=== PATIENT | male | born 1990 | race Caucasian/White ===

== ENCOUNTER 2018-11-01 01:26 | Emergency (ER) | payer BC, MEDICAID ==
[~2018-11-01] VITALS: Ht 180.3 cm; Wt 128.0 kg
[~2018-11-01 01:26] MED LIST: ABX; BEN25 PO; CEPH-443 PO; HYDR50TA15 PO; IBUP800T48 PO
[2018-11-01 01:33] VITALS: BP 144/92; PULSE 72; RESP 18; Ht 180.3 cm; Wt 128.0 kg
--- NOTE | 2018-11-01 01:59 | ERD ---
ER Documentation Chief Complaint Chief Complaint states insect bite left buttock yesterday, now c/o numbness left leg/arms HPI This is a 27-year-old male who presents here emergency department with complaints of insect bite to left buttock. Stated that he was [place] out in the park last Thursday when he felt that an insect bit his left buttock. Stated that he felt nervous about this. Complains of numbness and tingling sensation and palpitations today and this is the reason why he came here to the emergency department. Stated that he feels anxious about this. Denies headache, head injury, loss of consciousness, dizziness, neck pain, neck stiffness, throat pain, difficulty swallowing, difficulty breathing lying flat, shoulder pain, chest pain, back pain, abdominal pain, nausea, vomiting, constipation, diarrhea, urinary symptoms, loss of bowel and bladder control, trauma, injury, falls, difficulty walking due to pain, numbness or tingling s ensation, calf pain, recent travel, recent major surgery in the last 3 weeks, calf pain, recent long travel, recent exposure to any illness, recent antibiotic use in the last 3 months, fever, chills, seizures. Past medical history: Denies. Surgical history: Denies. Social: Denies smoking, use of alcoholic beverages, use of illegal drugs. ROS All systems reviewed and are negative except as per history of present illness. Medications Home Meds Active Scripts Hydroxyzine Hcl* (Hydroxyzine Hcl*) 50 Mg Tablet, 50 MG PO Q6H PRN for ANXIETY, #30 TAB Prov:PASILABANTHEODOREAR F 11/01/18 Diphenhydramine Hcl* (Benadryl*) 25 Mg Cap, 25 MG PO Q6 PRN for ITCHING/RASH, #30 TAB Prov:PASILABANSADAF F 11/01/18 Ibuprofen* (Motrin*) 800 Mg Tab, 800 MG PO Q6H PRN for PAIN AND OR ELEVATED TEMP, #30 TAB Prov:PASILABANSADAF F 11/01/18 Cephalexin* (Keflex*) 500 Mg Capsule, 500 MG PO TID for 7 Days, CAP Prov:PASILABAN,THEODOREAR F 11/01/18 Reported Medications [Abx Ointment] No Conflict Check 03/08/10 Allergies Allergies: Coded Allergies: No Known Allergies (Verified Allergy, Mild, 03/08/10) PMhx/Soc History of Surgery: No Anesthesia Reaction: No Hx Neurological Disorder: No Hx Respiratory Disorders: No Hx Cardiac Disorders: No Hx Psychiatric Problems: No Hx Miscellaneous Medical Probl: No Hx Alcohol Use: No Hx Substance Use: No Hx Tobacco Use: No Physical Exam Vitals Physical Exam Const: No acute distress Head: Atraumatic Eyes: Normal Conjunctiva ENT: Normal External Ears, Nose and Mouth. Neck: Full range of motion. No meningismus. Resp: Clear to auscultation bilaterally Cardio: Regular rate and rhythm, no murmurs Abd: Soft, non tender, non distended. Normal bowel sounds Skin: No petechiae or rashes Back: No midline or flank tenderness Ext: No cyanosis, or edema. Left upper thigh: Has a circular redness that is approximately 3 cm in diameter and is warm to touch. Left calf is no tenderness. Right calf is no tenderness. No neurovascular deficit. Ambulatory with steady gait. Neur: Awake and alert. No neurological deficits. Psych: Normal Mood and Affect Results 24 hrs Current Medications Medications Dose Sig/Mera Start Time Status Last (Trade) Ordered Route PRN Stop Time Admin Dose Reason Admin Lorazepam 1 mg ONCE ONCE 11/01/18 DC 11/01/18 (Ativan) PO 02:00 02:15 11/01/18 02:01 Procedures/MDM Diagnostic tests: Clinical exam. Treatment: Ativan. Re-evaluation: Denies pain. Denies auditory/visual hallucinations/delusions. Not suicidal. Not homicidal. Has the capacity to decide for himself. Has good support system at home. Differential diagnosis I have low suspicion for sepsis, DVT, deep space infection, suicidal ideation, 5150. Final diagnosis: Anxiety. Infected insect bite. Prescription: Motrin. Benadryl. Keflex. Hydroxyzine. Follow-up with PCP in the next 24-48 hours. Come back here in the emergency department for any new symptoms or any worsening symptoms. All questions and concerns were answered. Patient and family members verbalized understanding and agreed with plan of care. Hemodynamically stable on discharge. Departure Diagnosis: Primary Impression: Insect bite, infected Additional Impression: Anxiety Condition: Stable Additional Instructions: Follow-up with PCP in the next 24-48 hours. Come back here in the emergency department for any new symptoms or any worsening symptoms. SADAF HARPER Nov 01, 2018 01:59
[2018-11-01] MEDS ORDERED: LORAZEPAM 1 MG TAB PO ONE (02:00)
== END 2018-11-01 02:19 | disposition home or self-care (01) ==
LOC: FTE 01:26
DX: S30.860A Insect bite (nonvenomous) of lower back and pelvis, initial encounter (principal); F41.9 Anxiety disorder, unspecified; L08.9 Local infection of the skin and subcutaneous tissue, unspecified; W57.XXXA Bitten or stung by nonvenomous insect and other nonvenomous arthropods, initial encounter; Y92.9 Unspecified place or not applicable
CPT/HCPCS: 99283